=== PATIENT | female | born 1955 ===

== ENCOUNTER 2016-05-29 10:00 | Emergency (ER) | payer MEDICARE, MEDICAID ==
[2016-05-29 10:17] VITALS: BMI 35.9
[2016-05-29 10:32] VITALS: BP 151/76; RESP 18; TEMP 98.1; O2SAT 99
--- NOTE | 2016-05-29 11:28 | ED PDOC ---
HPI: General Adult Time Seen by Provider: 05/29/16 10:30 Chief Complaint (Nursing): Rib Injury Chief Complaint (Provider): Rib Injury History Per: Patient History/Exam Limitations: no limitations Onset/Duration Of Symptoms: Hrs Additional Complaint(s): 60 y/o female with a past medical history of 3 strokes, 2 minor heart attacks, aneurysm, and rheumatoid arthritis who presents to the emergency department with a complaint of hearing a crack to the right rib when she bent down in her car seat to leaf size picker her phone that fell on the floor on 05/26/2016. Patient states she did not visit the ER then because she thought the pain would get better but pain has worsened and is having difficulty breathing. Reports taking percocet without the relief of symptoms. Denies fall. Of note, patient states she had dental work up on 05/23/2016 which is why she had percocet And had prior surgery for the right rib after an injury about 4 years ago. PMD: Dr. Jg Henderson Past Medical History Reviewed: Historical Data, Nursing Documentation, Vital Signs Vital Signs: Last Vital Signs Temp 98.1 F 05/29/16 10:29 Pulse 58 L 05/29/16 12:50 Resp 18 05/29/16 10:29 BP 151/76 H 05/29/16 10:29 Pulse Ox 99 05/29/16 12:50 - Medical History PMH: Back Problems, CAD, Cardia Arrhythmia, CVA, HTN, Hypercholesterolemia, Osteoporosis, Rheumatoid Arthritis, Seizures, TIA Denies: Chronic Kidney Disease - Surgical History Surgical History: Back Surgery - Family History Family History: States: Unknown Family Hx - Social History Current smoker - smoking cessation education provided: No Alcohol: None Drugs: Denies - Home Medications Home Medications: Ambulatory Orders Medication Instructions Recorded Azithromycin [Zithromax] 250 mg PO DAILY #6 cap 03/03/14 Codeine Phos/Phenyleph HCl/P 5 ml PO Q6H #100 syr 03/03/14 [Phenergan Vc W/Codeine 120 ml] Acetaminophen with Codeine 1 tab PO Q6 PRN #15 tab 09/24/15 [Tylenol with Codeine No. 3 300 mg-30 mg] Colchicine 0.6 mg PO TID #15 capsule 09/24/15 Cyclobenzaprine [Cyclobenzaprine 10 mg PO TID PRN #15 tab 05/29/16 HCl] Lidocaine 5% [Lidoderm] 1 ea TD DAILY #10 patch 05/29/16 - Allergies Allergies/Adverse Reactions: Allergies Allergy/AdvReac Type Severity Reaction Status Date / Time ibuprofen Allergy RASH Verified 04/22/15 19:57 Review of Systems ROS Statement: Except As Marked, All Systems Reviewed And Found Negative Constitutional: Negative for: Other (Fall) Cardiovascular: Positive for: Other (Right rib pain) Respiratory: Positive for: Other (Difficulty breathing) Physical Exam - Reviewed Nursing Documentation Reviewed: Yes Vital Signs Reviewed: Yes - Physical Exam Appears: Positive for: Non-toxic, Uncomfortable Head Exam: Positive for: ATRAUMATIC, NORMOCEPHALIC Skin: Positive for: Normal Color, Warm, Dry Cardiovascular/Chest: Positive for: Regular Rate, Rhythm, Other (Tenderness and pain to the right lower rib subcoastal area). Negative for: Murmur Respiratory: Positive for: Normal Breath Sounds. Negative for: Accessory Muscle Use, Respiratory Distress Gastrointestinal/Abdominal: Positive for: Normal Exam, Soft. Negative for: Tenderness Neurologic/Psych: Positive for: Alert, Oriented - Laboratory Results Result Diagrams: 05/29/16 11:30 05/29/16 11:30 - ECG ECG: Positive for: Interpreted By Me, Viewed By Me ECG Rhythm: Positive for: Normal QRS, Normal ST Segment, Sinus Rhythm. Negative for: ST/T Changes Rate: 58 O2 Sat by Pulse Oximetry: 99 (RA) Pulse Ox Interpretation: Normal - Radiology X-Ray: Interpreted by Me, Viewed By Me X-Ray Interpretation: No Acute Disease - Progress Re-evaluation Time: 12:46 Condition: Re-examined, Improved Medical Decision Making Medical Decision Making: Time: 10:30 Initial impression: Rule out muscle strain, rib fracture, and atypical ACS Initial plan: --Electrocardiogram Stat --Basic Metabolic Panel --Troponin I Stat --EKG-ED (EDNURTX) Stat --CBC w/ differential --Ribs and Chest RT (RAD) --Morphine 4mg IVP --Agate Setter CONT --Revaluation EK bpm Sinus bradycardia. Nonspecific T Wave abnormality Scribe Attestation: Documented by Ronda Lobato, acting as a scribe for Brian Estrada MD. Provider Scribe Attestation: All medical record entries made by the Scribe were at my direction and personally dictated by me. I have reviewed the chart and agree that the record accurately reflects my personal performance of the history, physical exam, medical decision making, and the department course for this patient. I have also personally directed, reviewed, and agree with the discharge instructions and disposition. Disposition - Clinical Impression Clinical Impression: Rib contusion - Patient ED Disposition Is Patient to be Admitted: No Doctor Will See Patient In The: Office Counseled Patient/Family Regarding: Studies Performed, Diagnosis, Need For Followup - Disposition Referrals: Jg Henderson MD [Family Provider] - Disposition: Routine/Home Disposition Time: 12:46 Condition: GOOD Additional Instructions: Take medications for pain as instructed. Follow up with your PCP in 2-3 days. Prescriptions: Cyclobenzaprine [Cyclobenzaprine HCl] 10 mg PO TID PRN #15 tab PRN Reason: Muscle Spasm Lidocaine 5% [Lidoderm] 1 ea TD DAILY #10 patch Instructions: Rib Contusion (ED), Muscle Spasm (ED)
[2016-05-29 11:43] LABS: BASO # 0.1 K/uL (0.0-0.2); BASO % 1.4 % (0.0-2.0); EOS # 0.4 K/uL (0.0-0.7); EOS % 5.7 % (0.0-4.0); HEMATOCRIT 32.4 % (34.0-47.0); LYMPH # 2.6 K/uL (1.0-4.3); LYMPH % 35.8 % (20.0-40.0); MEAN CELL VOLUME 98.3 fl (81.0-99.0); MEAN CORPUSCULAR HEMOGLOBIN 33.7 pg (27.0-31.0); MEAN CORPUSCULAR HGB CONC 34.2 g/dL (33.0-37.0); MEAN PLATELET VOLUME 7.8 fl (7.2-11.7); MONO # 0.8 K/uL (0.0-0.8); MONO % 10.7 % (0.0-10.0); NEUT # 3.3 K/uL (1.8-7.0); NEUT % 46.4 % (50.0-75.0); NRBC % 0.1 % (0.0-0.0); RED CELL DISTRIBUTION WIDTH 14.4 % (11.5-14.5); WHITE BLOOD COUNT 7.2 K/uL (4.8-10.8)
[2016-05-29 11:49] LABS: BLOOD UREA NITROGEN 14 mg/dl (7-17); CALCIUM 9.1 mg/dL (8.4-10.2); CARBON DIOXIDE 24 mmol/L (22-30); CHLORIDE 108 mmol/L (98-107); GFR AFRICAN-AMERICAN > 60; GLUCOSE,RANDOM 91 mg/dL (65-105); SODIUM 144 mmol/l (132-148)
[2016-05-29 11:52] LABS: POTASSIUM 5.3 MMOL/L (3.6-5.0)
[2016-05-29] MEDS ORDERED: Lidocaine 5% Patch TD STA (12:22)
[2016-05-29 12:49] VITALS: PULSE 58
--- NOTE | 2016-05-29 12:56 | RAD ---
PROCEDURE: Chest and right ribs HISTORY: Rib pain, no history of trauma COMPARISON: 03/03/2014. TECHNIQUE: Frontal radiograph of the chest and multiple oblique radiographs of the right ribs were obtained. FINDINGS: RIGHT RIBS: No fracture or focal lesion visualized. LUNGS: Clear. PLEURA: No pneumothorax or pleural fluid. CARDIOVASCULAR: Cardiomegaly. No evidence of acute, significant cardiovascular disease. OTHER FINDINGS: None. IMPRESSION: Unremarkable radiographs of the chest and right ribs. No right rib fracture.
--- NOTE | 2016-05-29 21:01 | CARD ---
APPROVED REPORT EKG Measurement Heart [id number] <Conclusion> Sinus bradycardia Nonspecific T wave abnormality Abnormal ECG
== END 2016-05-29 13:53 | disposition home or self-care (01) ==
LOC: H.ER 10:00
DX: S20.219A Contusion of unspecified front wall of thorax, initial encounter (principal); X58.XXXA Exposure to other specified factors, initial encounter; I10 Essential (primary) hypertension; I25.10 Atherosclerotic heart disease of native coronary artery without angina pectoris; M81.0 Age-related osteoporosis without current pathological fracture; Z86.73 Personal history of transient ischemic attack (TIA), and cerebral infarction without residual deficits
CPT/HCPCS: 71101; 80048; 84484; 85025; 93005; 96374; 99282; J2270

== ENCOUNTER 2016-10-31 09:03 | Emergency (ER) | payer MEDICARE, MEDICAID ==
[2016-10-31 09:05] VITALS: BP 170/90; TEMP 98; O2SAT 98
[2016-10-31 09:06] VITALS: BMI 34.3
[2016-10-31 09:09] VITALS: PULSE 68; RESP 20
--- NOTE | 2016-10-31 09:46 | ED PDOC ---
HPI: Nose Bleed Time Seen by Provider: 10/31/16 09:10 Chief Complaint (Nursing): ENT Problem Chief Complaint (Provider): ENT Problem History Per: Patient History/Exam Limitations: no limitations Onset/Duration Of Symptoms: Days (few days prior to arrival) Current Symptoms Are (Timing): Still Present Additional Complaint(s): Vickie Sheriff is a 61 year old female presenting to the ED for an evaluation of intermittent bleeding from bilateral nostrils occurring for the past few days. The patient states she is on Plavix, but stopped taking the medication on her own due to the bleeding. She states she has had her nosebleeds for years and was evaluated by an ENT 4 months ago who said he "couldn't do anything for her". PMD: None Provided Past Medical History Reviewed: Historical Data, Nursing Documentation, Vital Signs Vital Signs: Last Vital Signs Temp 98 F 10/31/16 09:07 Pulse 68 10/31/16 09:07 Resp 20 10/31/16 09:07 BP 170/90 H 10/31/16 09:07 Pulse Ox 98 10/31/16 09:07 - Medical History PMH: Back Problems, CAD, Cardia Arrhythmia, CVA, HTN, Hypercholesterolemia, Osteoporosis, Rheumatoid Arthritis, Seizures, TIA Denies: Chronic Kidney Disease - Surgical History Surgical History: Denies: Back Surgery (denies) - Family History Family History: States: Unknown Family Hx - Social History Current smoker - smoking cessation education provided: No Ex-Smoker (has not smoked in the last 12 months): Yes Alcohol: None Drugs: Denies - Home Medications Home Medications: Ambulatory Orders Medication Instructions Recorded Azithromycin [Zithromax] 250 mg PO DAILY #6 cap 03/03/14 Codeine Phos/Phenyleph HCl/P 5 ml PO Q6H #100 syr 03/03/14 [Phenergan Vc W/Codeine 120 ml] Acetaminophen with Codeine 1 tab PO Q6 PRN #15 tab 09/24/15 [Tylenol with Codeine No. 3 300 mg-30 mg] Colchicine 0.6 mg PO TID #15 capsule 09/24/15 Cyclobenzaprine [Cyclobenzaprine 10 mg PO TID PRN #15 tab 05/29/16 HCl] Lidocaine 5% [Lidoderm] 1 ea TD DAILY #10 patch 05/29/16 - Allergies Allergies/Adverse Reactions: Allergies Allergy/AdvReac Type Severity Reaction Status Date / Time ibuprofen Allergy RASH Verified 10/31/16 09:07 Review of Systems ROS Statement: Except As Marked, All Systems Reviewed And Found Negative ENT: Positive for: Other (intermittent bleeding from bilateral nostrils) Physical Exam - Reviewed Nursing Documentation Reviewed: Yes Vital Signs Reviewed: Yes - Physical Exam Appears: Positive for: Non-toxic, No Acute Distress Head Exam: Positive for: ATRAUMATIC, NORMOCEPHALIC Skin: Positive for: Normal Color, Warm, Dry Eye Exam: Positive for: Normal appearance ENT: Positive for: Other (bilateral nostrils: no active bleeding, nose is clear with no blood) Neck: Positive for: Normal, Painless ROM Cardiovascular/Chest: Positive for: Regular Rate, Rhythm. Negative for: Murmur Respiratory: Positive for: Normal Breath Sounds. Negative for: Respiratory Distress Extremity: Positive for: Normal ROM Neurologic/Psych: Positive for: Alert, Oriented (x3) - ECG O2 Sat by Pulse Oximetry: 98 (RA) Pulse Ox Interpretation: Normal Medical Decision Making Medical Decision Making: Time: 09:10 Impression: Intermittent nosebleeds Plan: * Advised pt to restart Plavix and discussed with pt to not stop medications without consulting her doctors. Will refer pt to an ENT. Scribe Attestation: Documented by Aysha Marquez, acting as a scribe for Ching Johnson MD. Provider Scribe Attestation: All medical record entries made by the Scribe were at my direction and personally dictated by me. I have reviewed the chart and agree that the record accurately reflects my personal performance of the history, physical exam, medical decision making, and the department course for this patient. I have also personally directed, reviewed, and agree with the discharge instructions and disposition. Disposition - Clinical Impression Clinical Impression: Epistaxis - Disposition Referrals: Andrade Norman MD [Staff Provider] - Condition: STABLE Instructions: Nosebleed (ED) Forms: [employer] (Italian) Print Language: UPPER SORBIAN
== END 2016-10-31 09:31 | disposition home or self-care (01) ==
LOC: H.ER 09:03
DX: R04.0 Epistaxis (principal)

== ENCOUNTER 2017-02-01 09:56 | Emergency (ER) | payer MEDICARE, MEDICAID ==
[2017-02-01 09:56] VITALS: BMI 34.3
[2017-02-01 10:19] VITALS: RESP 19; TEMP 98
[2017-02-01] MEDS ORDERED: Acetaminophen-Codeine 300/30 mg Tab PO STA (10:35)
--- NOTE | 2017-02-01 11:10 | RAD ---
PROCEDURE: Left Ankle Radiographs. HISTORY: injury COMPARISON: None FINDINGS: BONES: Unremarkable. No fracture. JOINTS: Unremarkable. Ankle mortise maintained. Talar dome intact SOFT TISSUES: Normal. OTHER FINDINGS: Achilles enthesophyte. IMPRESSION: No demonstrated fracture or dislocation.
--- NOTE | 2017-02-01 11:16 | ED PDOC ---
Lower Extremity Pain/Injury Time Seen by Provider: 02/01/17 10:34 Chief Complaint (Nursing): Lower Extremity Problem/Injury Chief Complaint (Provider): ankle pain History Per: Patient History/Exam Limitations: no limitations Additional Complaint(s): 61yo F in Ed for eval of left ankle swelling/pain made worse with standing on ankle x 2days. states that he hs a hx of osteoarthritis, RA, CVA, [place]. denies calf pain numbness deformity to ankle. Past Medical History Reviewed: Historical Data, Nursing Documentation, Vital Signs Vital Signs: Last Vital Signs Temp 98 F 02/01/17 10:17 Pulse 61 02/01/17 10:17 Resp 19 02/01/17 10:17 BP 152/71 H 02/01/17 10:17 Pulse Ox 100 02/01/17 10:17 - Medical History PMH: Back Problems, CAD, Cardia Arrhythmia, CVA, HTN, Hypercholesterolemia, Osteoporosis, Rheumatoid Arthritis, Seizures, TIA Denies: Chronic Kidney Disease - Surgical History Surgical History: Denies: Back Surgery (denies) - Family History Family History: States: Unknown Family Hx - Home Medications Home Medications: Ambulatory Orders Medication Instructions Recorded Azithromycin [Zithromax] 250 mg PO DAILY #6 cap 03/03/14 Codeine Phos/Phenyleph HCl/P 5 ml PO Q6H #100 syr 03/03/14 [Phenergan Vc W/Codeine 120 ml] Acetaminophen with Codeine 1 tab PO Q6 PRN #15 tab 09/24/15 [Tylenol with Codeine No. 3 300 mg-30 mg] Colchicine 0.6 mg PO TID #15 capsule 09/24/15 Cyclobenzaprine [Cyclobenzaprine 10 mg PO TID PRN #15 tab 05/29/16 HCl] Lidocaine 5% [Lidoderm] 1 ea TD DAILY #10 patch 05/29/16 - Allergies Allergies/Adverse Reactions: Allergies Allergy/AdvReac Type Severity Reaction Status Date / Time aspirin Allergy RASH Verified 02/01/17 10:23 ibuprofen Allergy RASH Verified 02/01/17 10:23 NEOPRENE Allergy RASH Uncoded 02/01/17 10:23 Wells Criteria for PE - Wells Criteria for Pulmonary Embolism Clinical Signs and Symptoms of DVT: No P.E is #1 Diagnosis, or Equally Likely: No Heart Rate >100: No Immobilization at least 3 days;Surgery previous 4 weeks: No Previous, objectively diagnosed PE or DVT: No Hemoptysis: No Malignancy w/treatment within 6 months, or palliative: No Total Score: 0 Review of Systems ROS Statement: Except As Marked, All Systems Reviewed And Found Negative Constitutional: Negative for: Fever, Chills Gastrointestinal: Negative for: Nausea, Vomiting, Abdominal Pain Physical Exam - Reviewed Nursing Documentation Reviewed: Yes Vital Signs Reviewed: Yes - Physical Exam Appears: Positive for: Well, Non-toxic, No Acute Distress Skin: Positive for: Normal Color, Warm, DRY Neck: Positive for: Painless ROM Cardiovascular/Chest: Positive for: Regular Rate, Rhythm Respiratory: Positive for: CNT, Normal Breath Sounds Extremity: Positive for: Swelling (left ankle: mild swelling noted lateral tednerness noted. nuerovasc intact). Negative for: Calf Tenderness, Deformity Neurologic/Psych: Positive for: Alert, Oriented - ECG O2 Sat by Pulse Oximetry: 100 - Radiology X-Ray: Interpreted by Me, Read By Radiologist X-Ray Interpretation: No Acute Disease Medical Decision Making Medical Decision Making: Orders Category Date Time Status Acetaminophen/Codeine [Tylenol/Codeine 300 MG/30 MG] Med 02/01/17 10:35 Discontinued 1 tab PO ONCE STA ANKLE LEFT 3 VIEWS ROUTINE [RAD] Stat Radiology 02/01/17 10:26 Completed PT advisecd to antoni with podiatry for further care-given Aircast and advised to continue tramadol and tyenol for pain since she has an allergy to ASA/Motrin. Disposition - Clinical Impression Clinical Impression: Ankle injury - Patient ED Disposition Is Patient to be Admitted: No Counseled Patient/Family Regarding: Studies Performed, Diagnosis, Need For Followup - Disposition Referrals: Podiatry Clinic [Outside] Disposition: Routine/Home Disposition Time: 11:34 Condition: STABLE Instructions: Osteoarthritis (ED) Forms: [employer] ([employer])
[2017-02-01 11:47] VITALS: BP 124/75; PULSE 89; O2SAT 99
== END 2017-02-01 12:12 | disposition home or self-care (01) ==
LOC: H.ER 09:56
DX: M25.572 Pain in left ankle and joints of left foot (principal); M06.9 Rheumatoid arthritis, unspecified; M81.0 Age-related osteoporosis without current pathological fracture; Z86.73 Personal history of transient ischemic attack (TIA), and cerebral infarction without residual deficits

== ENCOUNTER 2017-02-28 06:01 | Day surgery (SDC) | payer MEDICARE, MEDICAID ==
[2017-02-21 09:10] VITALS: BMI 35.9
[2017-02-28 07:29] VITALS: RESP 18
[2017-02-28] MEDS ORDERED: Maxitrol Opht Susp ONE (08:56)
[2017-02-28] MEDS ORDERED: Lidocaine 1% 20 MG/2 ML PF AMP ONE (08:56)
[2017-02-28] MEDS ORDERED: Tetracaine 0.5% Ophth 2 ML BOTTLE ONE (08:56)
[2017-02-28] MEDS ORDERED: Acetylcholine 1% Opth System Pack IO ONE (08:56)
[2017-02-28] MEDS ORDERED: Chondroitin/Hyaluronate Opth Syringe KIT (0.55 ml-0.5 ml) IO ONE (08:57)
[2017-02-28] MEDS ORDERED: CA CL/K CL/NA CL 500 ML IR ONE (08:57)
[2017-02-28] MEDS ORDERED: EPINEPHrine 1 mg/ml (1:1000) Inj ONE (08:57)
[2017-02-28] MEDS ORDERED: Pilocarpine 1% Opht Soln ONE (08:57)
[2017-02-28] MEDS ORDERED: Povidone Iodine 5% Opht SOLUTION ONE (08:57)
[2017-02-28] MEDS ORDERED: BSS 15 ML 45 ML IR ONE (08:57)
[2017-02-28] MEDS ORDERED: Tropicamide 1% Opht 150 DROP/15 ML OD SCH (09:30)
[2017-02-28] MEDS ORDERED: Flurbiprofen 0.3% Opht SOLN OD SCH (09:30)
[2017-02-28] MEDS ORDERED: Phenylephrine 2.5% Opht Soln OD SCH (09:30)
[2017-02-28] MEDS ORDERED: Tropicamide 1% Opht 150 DROP/15 ML OD ONE (10:00)
[2017-02-28] MEDS ORDERED: Flurbiprofen 0.3% Opht SOLN OD ONE (10:00)
[2017-02-28] MEDS ORDERED: Phenylephrine 2.5% Opht Soln OD ONE (10:00)
[2017-02-28] MEDS ORDERED: Midazolam 2 MG/2 ML VIAL ONE (10:46)
[2017-02-28] MEDS ORDERED: Tetracaine 0.5% Ophth 2 ML BOTTLE OD ONE (10:50)
[2017-02-28] MEDS ORDERED: Lactated Ringer's 1,000 ML IV ONE (10:50)
[2017-02-28 12:57] VITALS: PULSE 62; TEMP 97.5; O2SAT 96
[2017-02-28 12:58] VITALS: BP 132/75
--- NOTE | 2017-03-06 12:41 | OP ---
PROCEDURE DATE : 02/28/17 SURGEON: JEAN NICHOLE MD ANESTHESIOLOGIST: JOSR MONET MD ANESTHESIA: LOCAL / IV SEDATION PREOPERATIVE DIAGNOSIS: CATARACT RIGH EYE. POSTOPERATIVE DIAGNOSIS: CATARACT RIGHT EYE. OPERATION: CLEAR CORNEAL PHACOEMULSIFICATION WITH LENS IMPLANT RIGHT EYE. PREPARATION AND PROCEDURE: After the patient was prepped and draped in the usual manner for sterile ophthalmic surgery, local IV sedation was administered ; eye seals were applied to the upper and lower lid margins and an adult wire lid speculum was placed within the lids. Under microsurgical control, a two- step clear corneal incision was made into the anterior chamber. The initial incision was perpendicular to the corneal plane. The second incision with the keratome was placed at a 45-degree angle to the first incision. One cc of one percent Xylocaine MPF was instilled into the anterior chamber to achieve proper intraocular anesthesia. At this time, the Viscoelastic was injected into the anterior chamber for protection of the endothelium and for maintenance of the chamber depth. A 360-degree continuous curvilinear capsulorrhexis was performed using a pre-bent 25-gauge needle. Hydrodissection and hydrodelineation were performed using a Chau cannula and balanced salt solution. Utilizing the tip of the Chau cannula, the nucleus was rotated freely within the capsular bag. A standard one-handed phacoemulsification was utilized at this time for sculpting and rotating of the nucleus. The nucleus was fragmented in its entirety and aspirated without any consequence. A standard I&A was carried out for the residual cortical material. No residual material was noted within the capsular bag. The posterior capsule was noted to be clear. Additional Viscoelastic was injected into the capsular bag in preparation for lens implantation. After this has been satisfactorily achieved the intraocular lens injected through the corneal incision into the capsular bag. The intraocular lens was manipulated until it was properly oriented and the Viscoelastic was evacuated from the capsular bag and anterior chamber. The anterior chamber was reformed with balanced salt solution. The corneal incision was irrigated with BSS. The intraocular pressure was found to be within normal limits. This terminated the procedure. The speculum and lid drapes were removed. TobraDex ophthalmic suspension and Pilocarpine 1% drops one drop was applied to the eye. POSTOPERATIVE CONDITION: The patient was brought to the Post anesthesia Recovery area with stable vital signs. DJEAN CENTENO MD
== END 2017-02-28 12:58 | disposition home or self-care (01) ==
LOC: H.OPSURG 06:01
PROVIDERS: ATTEND Ophthalmology
DX: H25.11 Age-related nuclear cataract, right eye (principal); I25.10 Atherosclerotic heart disease of native coronary artery without angina pectoris; J45.909 Unspecified asthma, uncomplicated; J44.9 Chronic obstructive pulmonary disease, unspecified; Z86.73 Personal history of transient ischemic attack (TIA), and cerebral infarction without residual deficits; E78.5 Hyperlipidemia, unspecified; I10 Essential (primary) hypertension; I25.2 Old myocardial infarction; G40.909 Epilepsy, unspecified, not intractable, without status epilepticus
CPT/HCPCS: 66984; J0171; J2250; J3010; J7120; V2632

== ENCOUNTER 2017-03-21 09:03 | Day surgery (SDC) | payer MEDICARE, MEDICAID ==
[2017-03-21] MEDS ORDERED: Pilocarpine 1% Opht Soln ONE (09:14)
[2017-03-21] MEDS ORDERED: Acetylcholine 1% Opth System Pack IO ONE ×2 (09:14→12:44)
[2017-03-21] MEDS ORDERED: Tetracaine 0.5% Ophth 2 ML BOTTLE ONE (09:14)
[2017-03-21] MEDS ORDERED: EPINEPHrine 1 mg/ml (1:1000) Inj ONE (09:14)
[2017-03-21] MEDS ORDERED: Maxitrol Opht Susp ONE (09:14)
[2017-03-21] MEDS ORDERED: Lidocaine 1% 20 MG/2 ML PF AMP ONE (09:14)
[2017-03-21] MEDS ORDERED: BSS 15 ML 45 ML IR ONE (09:15)
[2017-03-21] MEDS ORDERED: Chondroitin/Hyaluronate Opth Syringe KIT (0.55 ml-0.5 ml) IO ONE ×2 (09:15→12:43)
[2017-03-21] MEDS ORDERED: CA CL/K CL/NA CL 500 ML IR ONE (09:15)
[2017-03-21] MEDS ORDERED: Povidone Iodine 5% Opht SOLUTION ONE (09:15)
[2017-03-21 09:48] VITALS: BMI 35.3
[2017-03-21] MEDS ORDERED: Tropicamide 1% Opht 150 DROP/15 ML OS SCH (10:30)
[2017-03-21] MEDS ORDERED: Phenylephrine 2.5% Opht Soln OS ONE (10:30)
[2017-03-21] MEDS ORDERED: Flurbiprofen 0.3% Opht SOLN OS SCH (10:30)
[2017-03-21] MEDS ORDERED: Lactated Ringer's 1,000 ML IV ONE (10:40)
[2017-03-21] MEDS ORDERED: Flurbiprofen 0.3% Opht SOLN OS ONE (10:45)
[2017-03-21 11:00] VITALS: RESP 18
[2017-03-21] MEDS ORDERED: Midazolam 2 MG/2 ML VIAL ONE (12:24)
[2017-03-21] MEDS ORDERED: Maxitrol Opht Susp OS ONE (12:45)
[2017-03-21] MEDS ORDERED: Pilocarpine 1% Opht Soln OS ONE (12:46)
[2017-03-21 16:32] VITALS: TEMP 98.1
[2017-03-21 16:34] VITALS: O2SAT 96
[2017-03-21 16:35] VITALS: BP 140/80; PULSE 58
--- NOTE | 2017-03-23 07:04 | OP ---
PROCEDURE DATE : 03/21/17 SURGEON: JEAN NICHOLE MD ANESTHESIOLOGIST: JOSR MONET MD ANESTHESIA: IV SEDATION PREOPERATIVE DIAGNOSIS: CATARACT LEFT EYE. POSTOPERATIVE DIAGNOSIS: CATARACT LEFT EYE. OPERATION: CLEAR CORNEAL PHACOEMULSIFICATION WITH LENS IMPLANT LEFT EYE. PREPARATION AND PROCEDURE: After the patient was prepped and draped in the usual manner for sterile ophthalmic surgery, local IV sedation was administered ; eye seals were applied to the upper and lower lid margins and an adult wire lid speculum was placed within the lids. Under microsurgical control, a two- step clear corneal incision was made into the anterior chamber. The initial incision was perpendicular to the corneal plane. The second incision with the keratome was placed at a 45-degree angle to the first incision. One cc of one percent Xylocaine MPF was instilled into the anterior chamber to achieve proper intraocular anesthesia. At this time, the Viscoelastic was injected into the anterior chamber for protection of the endothelium and for maintenance of the chamber depth. A 360-degree continuous curvilinear capsulorrhexis was performed using a pre-bent 25-gauge needle. Hydrodissection and hydrodelineation were performed using a Chau cannula and balanced salt solution. Utilizing the tip of the Chau cannula, the nucleus was rotated freely within the capsular bag. A standard one-handed phacoemulsification was utilized at this time for sculpting and rotating of the nucleus. The nucleus was fragmented in its entirety and aspirated without any consequence. A standard I&A was carried out for the residual cortical material. No residual material was noted within the capsular bag. The posterior capsule was noted to be clear. Additional Viscoelastic was injected into the capsular bag in preparation for lens implantation. After this has been satisfactorily achieved the intraocular lens injected through the corneal incision into the capsular bag. The intraocular lens was manipulated until it was properly oriented and the Viscoelastic was evacuated from the capsular bag and anterior chamber. The anterior chamber was reformed with balanced salt solution. The corneal incision was irrigated with BSS. The intraocular pressure was found to be within normal limits. This terminated the procedure. The speculum and lid drapes were removed. TobraDex ophthalmic suspension and Pilocarpine 1% drops one drop was applied to the eye. POSTOPERATIVE CONDITION: The patient was brought to the Post anesthesia Recovery area with stable vital signs. DJEAN CENTENO MDD
== END 2017-03-21 14:20 | disposition home or self-care (01) ==
LOC: H.OPSURG 09:03
PROVIDERS: ATTEND Ophthalmology
DX: H25.812 Combined forms of age-related cataract, left eye (principal); J45.909 Unspecified asthma, uncomplicated; Z86.73 Personal history of transient ischemic attack (TIA), and cerebral infarction without residual deficits; I10 Essential (primary) hypertension; G40.909 Epilepsy, unspecified, not intractable, without status epilepticus
CPT/HCPCS: 66984; J0171; J2250; J3010; J7120; V2632

== ENCOUNTER 2017-07-01 10:01 | Emergency (ER) | payer MEDICARE, MEDICAID ==
[2017-07-01 10:02] VITALS: BMI 35.3
--- NOTE | 2017-07-01 10:54 | ED PDOC ---
HPI: Chest Pain Time Seen by Provider: 07/01/17 10:18 Chief Complaint (Nursing): Rib Injury Chief Complaint (Provider): Rib Injury History Per: Patient Onset/Duration Of Symptoms: Days (x5) Current Symptoms Are (Timing): Still Present Severity: None Associated Symptoms: Nausea, Dyspnea Additional Complaint(s): 61 year old female with a past medical history of asthma, COPD, CVA, brain aneurysm, rheumatoid arthritis, and osteoporosis, presents to the ED with complaints of right rib pain, onset 5 days ago. Patient reports she was stretching over her sofa reaching for her TV remote when she felt like something may have popped in her right rib. Patient reports of severe pain while breathing and nausea. Patient states she took tramadol and vitacin prescribed in the past for chronic headaches but has not felt any relief. Denies fevers, cough, and chest pain. PMD: Dr. Hitesh Henderson Past Medical History Reviewed: Historical Data, Nursing Documentation, Vital Signs Vital Signs: Last Vital Signs Temp 97 F L 07/01/17 10:11 Pulse 56 L 07/01/17 16:17 Resp 18 07/01/17 16:12 BP 143/67 07/01/17 16:12 Pulse Ox 100 07/01/17 16:17 - Medical History PMH: Back Problems, CAD, Cardia Arrhythmia, CVA, Depression, HTN, Hypercholesterolemia, Rheumatoid Arthritis, Seizures, TIA Denies: Chronic Kidney Disease - Surgical History Surgical History: Denies: Back Surgery (denies) Other surgeries: Aneurysm clipping surgery, abdominal tumor removal. - Family History Family History: States: Unknown Family Hx - Home Medications Home Medications: Ambulatory Orders Medication Instructions Recorded Carbamazepine [Carbamazepine] 200 mg PO TID 02/21/17 Clonidine HCl [Catapres] 0.2 mg PO BID 02/21/17 Clopidogrel [Plavix] 75 mg PO DAILY 02/21/17 Clotrimazole [Athletic Foot Cream] 30 mg BID 02/21/17 Enalapril Maleate [Vasotec] 20 mg PO BID 02/21/17 Ezetimibe [Zetia] 10 mg PO DAILY 02/21/17 Fluticasone/Vilanterol [Breo 1 % PO DAILY PRN 02/21/17 Ellipta 100-25 Mcg INH] Folic Acid [Folic Acid] 1 mg PO DAILY 02/21/17 Methotrexate [Methotrexate] 2.5 mg PO ONCE 02/21/17 Omeprazole [Omeprazole] 40 mg PO DAILY 02/21/17 Pregabalin [Lyrica] 75 mg PO DAILY 02/21/17 Tramadol HCl [Tramadol HCl ER] 375 mg PO QID 02/21/17 amLODIPine [Norvasc] 10 mg PO DAILY 02/21/17 levETIRAcetam [Keppra] 500 mg PO BID 02/21/17 Adalimumab [Humira Pen] 40 mg SQ .Q15 DAYS 02/28/17 Atenolol [Tenormin] 100 mg PO DAILY 02/28/17 Cyclobenzaprine [Cyclobenzaprine 10 mg PO TID #15 tab 07/01/17 HCl] - Allergies Allergies/Adverse Reactions: Allergies Allergy/AdvReac Type Severity Reaction Status Date / Time aspirin Allergy RASH Verified 02/01/17 10:23 ibuprofen Allergy RASH Verified 02/01/17 10:23 Penicillins Allergy RASH Verified 07/01/17 10:14 NEOPRENE Allergy RASH Uncoded 02/01/17 10:23 JOSE R Risk Score for UA/NSTEMI - JOS ER Risk Score Age > 64: NO 3 or more CAD Risk Factors: NO Known CAD (Stenosis greater than 50%): NO Aspirin use in past 7 days: NO Severe Angina: NO EKG ST changes greater than 0.5mm: NO Positive Cardiac Marker: NO JOSE R Score: 0 Risk %: 5% Wells Criteria for PE - Wells Criteria for Pulmonary Embolism Clinical Signs and Symptoms of DVT: No P.E is #1 Diagnosis, or Equally Likely: Yes Heart Rate >100: No Immobilization at least 3 days;Surgery previous 4 weeks: No Previous, objectively diagnosed PE or DVT: No Hemoptysis: No Malignancy w/treatment within 6 months, or palliative: No Total Score: 1 Review of Systems ROS Statement: Except As Marked, All Systems Reviewed And Found Negative Constitutional: Negative for: Fever Cardiovascular: Positive for: Other (dyspnea). Negative for: Chest Pain Respiratory: Negative for: Cough Gastrointestinal: Positive for: Nausea Musculoskeletal: Positive for: Other (right rib pain) Physical Exam - Reviewed Nursing Documentation Reviewed: Yes Vital Signs Reviewed: Yes - Physical Exam Appears: Positive for: Non-toxic, No Acute Distress Head Exam: Positive for: ATRAUMATIC, NORMOCEPHALIC Skin: Positive for: Normal Color, Warm, Dry Eye Exam: Positive for: Normal appearance, EOMI, PERRL ENT: Positive for: Normal ENT Inspection Neck: Positive for: Normal, Painless ROM, Supple Cardiovascular/Chest: Positive for: Bradycardia Respiratory: Positive for: Normal Breath Sounds. Negative for: Respiratory Distress Gastrointestinal/Abdominal: Positive for: Normal Exam, Tenderness (right lower rib) Back: Positive for: Normal Inspection. Negative for: L CVA Tenderness, R CVA Tenderness, Vertebral Tenderness Extremity: Positive for: Normal ROM. Negative for: Pedal Edema, Deformity Neurologic/Psych: Positive for: Alert, Oriented (x3). Negative for: Motor/ Sensory Deficits - Laboratory Results Result Diagrams: 07/01/17 10:59 07/01/17 10:59 - ECG ECG Rhythm: Positive for: Normal QRS, Sinus Bradycardia. Negative for: ST/T Changes Rate: 56 (Sinus Bradycardia) O2 Sat by Pulse Oximetry: 100 (RA) Pulse Ox Interpretation: Normal - Progress Re-evaluation Time: 16:00 Condition: Re-examined, Improved Medical Decision Making Medical Decision Making: Time: 1048 Impression: Right rib pain with trauma consider rib fracture, rule out pneumothorax and pneumonia, less likely ACS Plan: -- EKG -- BMP -- Troponin I -- CBC with differentials -- Shoe Associate -- Ribs Right & PA Chest RAD Time: 1147 RIBS RIGHT & PA CHEST RAD RESULTS FINDINGS: RIGHT RIBS: No fracture or focal lesion visualized. LUNGS: Clear. PLEURA: No pneumothorax or pleural fluid. CARDIOVASCULAR: Normal sized heart. No pulmonary vascular congestion. OTHER FINDINGS: None. IMPRESSION: Unremarkable radiographs of the chest and right ribs. No right rib fracture. Time: 1147 Plan: -- Chest CT w/o Contrast Time: [address] RESULTS LUNGS: Clear lungs. Visualized airway clear. MEDIASTINUM: Unremarkable thoracic aorta. No aneurysm. Normal heart size. Coronary arterial calcification. No pericardial effusion. Main pulmonary artery unremarkable. No vascular congestion. No lymphadenopathy. PLEURA: No pleural fluid. No pneumothorax. BONES: No fracture. No destructive lesion. UPPER ABDOMEN: Cholelithiasis. No evidence of cholecystitis. OTHER FINDINGS: None. IMPRESSION: Cholelithiasis without evidence of cholecystitis. No infiltrate or pleural effusion. No rib fracture or lytic/blastic osseous lesions. Time: 1424 -- D-Dimer is elevated ordered ANGIO CHEST CT Time: [address] RESULTS FINDINGS: PULMONARY ARTERIES: Unremarkable. No pulmonary embolism. AORTA: No acute findings. No thoracic aortic aneurysm. LUNGS: Unremarkable. No nodule, mass or pulmonary consolidation. PLEURAL SPACES: Unremarkable. No effusion or pneuomothorax. HEART: Unremarkable. No cardiomegaly. No significant pericardial effusion. LYMPH NODES: No lymphadenopathy. BONES, CHEST WALL: Unremarkable. No fracture or destructive lesion OTHER FINDINGS: Unremarkable. IMPRESSION: Unremarkable CT pulmonary angiogram. No pulmonary embolus. Scribe Attestation: Documented by Luís Tatum, acting as a scribe for Dr. Brian Estrada MD. Provider Scribe Attestation: All medical record entries made by the Scribe were at my direction and personally dictated by me. I have reviewed the chart and agree that the record accurately reflects my personal performance of the history, physical exam, medical decision making, and the department course for this patient. I have also personally directed, reviewed, and agree with the discharge instructions and disposition. Disposition - Clinical Impression Clinical Impression: Rib pain on right side - Patient ED Disposition Is Patient to be Admitted: No Doctor Will See Patient In The: Office Counseled Patient/Family Regarding: Studies Performed, Diagnosis, Need For Followup - Disposition Referrals: [facility] [Outside] Disposition: Routine/Home Disposition Time: 16:15 Condition: GOOD Additional Instructions: Take your medications as directed. Follow up with your PCP in 2-3 days. Prescriptions: Cyclobenzaprine [Cyclobenzaprine HCl] 10 mg PO TID #15 tab Instructions: Pleuritic Chest Pain (DC)
[2017-07-01 11:05] LABS: BASO # 0.1 K/uL (0.0-0.2); BASO % 0.7 % (0.0-2.0); EOS % 0.1 % (0.0-4.0); HEMOGLOBIN 11.7 g/dL (12.0-16.0); LYMPH # 2.2 K/uL (1.0-4.3); LYMPH % 22.6 % (20.0-40.0); MEAN CORPUSCULAR HEMOGLOBIN 31.8 pg (27.0-31.0); MEAN CORPUSCULAR HGB CONC 34.3 g/dL (33.0-37.0); MEAN PLATELET VOLUME 7.5 fl (7.2-11.7); MONO % 10.1 % (0.0-10.0); NEUT # 6.5 K/uL (1.8-7.0); NEUT % 66.5 % (50.0-75.0); RBC 3.67 Mil/uL (3.80-5.20); RED CELL DISTRIBUTION WIDTH 14.2 % (11.5-14.5); WHITE BLOOD COUNT 9.8 K/uL (4.8-10.8)
[2017-07-01 11:12] LABS: BLOOD UREA NITROGEN 12 mg/dl (7-17); CALCIUM 10.1 mg/dL (8.4-10.2); GFR AFRICAN-AMERICAN > 60; GFR NON-AFRICAN AMERICAN > 60
[2017-07-01 11:14] LABS: MEAN CELL VOLUME 92.7 fl (81.0-99.0)
--- NOTE | 2017-07-01 11:59 | RAD ---
PROCEDURE: Radiographs of the Chest and Right Ribs. HISTORY: right rib pain COMPARISON: None available. TECHNIQUE: Frontal radiograph of the chest and multiple oblique radiographs of the right ribs were obtained. FINDINGS: RIGHT RIBS: No fracture or focal lesion visualized. LUNGS: Clear. PLEURA: No pneumothorax or pleural fluid. CARDIOVASCULAR: Normal sized heart. No pulmonary vascular congestion. OTHER FINDINGS: None. IMPRESSION: Unremarkable radiographs of the chest and right ribs. No right rib fracture.
--- NOTE | 2017-07-01 12:52 | CT ---
PROCEDURE: CT Chest without contrast HISTORY: severe right rib pain COMPARISON: None. TECHNIQUE: Contiguous axial images were obtained through the chest without intravenous contrast enhancement. Sagittal and coronal reconstructions were performed. Radiation dose (DLP): 624.90 mGy-cm. This CT exam was performed using one or more of the following dose reduction techniques: Automated exposure control, adjustment of the mA and/or kV according to patient size, and/or use of iterative reconstruction technique. FINDINGS: LUNGS: Clear lungs. Visualized airway clear. MEDIASTINUM: Unremarkable thoracic aorta. No aneurysm. Normal heart size. Coronary arterial calcification. No pericardial effusion. Main pulmonary artery unremarkable. No vascular congestion. No lymphadenopathy. PLEURA: No pleural fluid. No pneumothorax. BONES: No fracture. No destructive lesion. UPPER ABDOMEN: Cholelithiasis. No evidence of cholecystitis. OTHER FINDINGS: None. IMPRESSION: Cholelithiasis without evidence of cholecystitis. No infiltrate or pleural effusion. No rib fracture or lytic/blastic osseous lesions.
[2017-07-01] MEDS ORDERED: Iodixanol 320 MG/ML 100 ML BOTTLE IV ONE (14:36)
--- NOTE | 2017-07-01 16:10 | CT ---
PROCEDURE: CT Chest with contrast (Pulmonary Angiogram) HISTORY: chest pain COMPARISON: None available. TECHNIQUE: Axial computed tomography images were obtained of the chest in the pulmonary arterial phase of enhancement. Coronal and sagittal reformatted images were created and reviewed. Intravenous contrast dose: 90 mL Visipaque 320 Radiation dose: Total exam DLP = 406.02 mGy-cm. This CT exam was performed using one or more of the following dose reduction techniques: Automated exposure control, adjustment of the mA and/or kV according to patient size, and/or use of iterative reconstruction technique. FINDINGS: PULMONARY ARTERIES: Unremarkable. No pulmonary embolism. AORTA: No acute findings. No thoracic aortic aneurysm. LUNGS: Unremarkable. No nodule, mass or pulmonary consolidation. PLEURAL SPACES: Unremarkable. No effusion or pneuomothorax. HEART: Unremarkable. No cardiomegaly. No significant pericardial effusion. LYMPH NODES: No lymphadenopathy. BONES, CHEST WALL: Unremarkable. No fracture or destructive lesion OTHER FINDINGS: Unremarkable. IMPRESSION: Unremarkable CT pulmonary angiogram. No pulmonary embolus.
[2017-07-01 16:12] VITALS: RESP 18
[2017-07-01 17:34] VITALS: BP 147/81; PULSE 66; TEMP 97.8; O2SAT 97
--- NOTE | 2017-07-03 06:40 | CARD ---
APPROVED REPORT EKG Measurement Heart [id number] <Conclusion> Sinus bradycardia Nonspecific T wave abnormality Abnormal ECG
== END 2017-07-01 17:20 | disposition home or self-care (01) ==
LOC: H.ER 10:01
DX: R07.81 Pleurodynia (principal); E78.00 Pure hypercholesterolemia, unspecified; F32.9 Major depressive disorder, single episode, unspecified; I10 Essential (primary) hypertension; I25.10 Atherosclerotic heart disease of native coronary artery without angina pectoris; M06.9 Rheumatoid arthritis, unspecified; Z86.73 Personal history of transient ischemic attack (TIA), and cerebral infarction without residual deficits; Z88.0 Allergy status to penicillin; K80.20 Calculus of gallbladder without cholecystitis without obstruction
CPT/HCPCS: 71101; 71250; 71275; 80048; 84484; 85025; 85378; 93005; 96374; 96375; 99284; J1885; J2270; Q9967

== ENCOUNTER 2018-03-10 14:27 | Emergency (ER) | payer MEDICARE, MEDICAID ==
[2018-03-10 14:28] VITALS: BMI 35.3
--- NOTE | 2018-03-10 15:46 | ED PDOC ---
Upper Extremity Pain/Injury Time Seen by Provider: 03/10/18 14:41 Chief Complaint (Nursing): Headache Chief Complaint (Provider): RUE pain History Per: Patient History/Exam Limitations: no limitations Additional Complaint(s): Pt reports RUE pain X 2 days, from hand to R lateral neck, worse with movement, numbness X 1 month. Denies new weakness (has residual weakness from old CVA), trauma. Also c/o L sided TIERNEY X 1 week, constant, was evaluated by Neurologist for past 3 days for same, given injection for pain, had outpatient CT head @ [facility] which was normal. Pt currently on Plavix. Past Medical History Reviewed: Nursing Documentation, Vital Signs Vital Signs: Last Vital Signs Temp 98.1 F 03/10/18 14:29 Pulse 62 03/10/18 15:18 Resp 18 03/10/18 15:18 BP 182/95 H 03/10/18 15:18 Pulse Ox 98 03/10/18 15:18 - Medical History PMH: Asthma, Back Problems, CAD, Cardia Arrhythmia, CVA, Depression, HTN, Hypercholesterolemia, Rheumatoid Arthritis, Seizures, TIA Denies: Chronic Kidney Disease - Surgical History Surgical History: Cholecystectomy, Denies: Back Surgery (denies) - Family History Family History: States: Unknown Family Hx - Living Arrangements Living Arrangements: With Family - Home Medications Home Medications: Ambulatory Orders Medication Instructions Recorded Carbamazepine 200 mg PO TID 02/21/17 Clonidine HCl [Catapres] 0.2 mg PO BID 02/21/17 Clopidogrel [Plavix] 75 mg PO DAILY 02/21/17 Clotrimazole [Athletic Foot Cream] 30 mg BID 02/21/17 Enalapril Maleate [Vasotec] 20 mg PO BID 02/21/17 Ezetimibe [Zetia] 10 mg PO DAILY 02/21/17 Fluticasone/Vilanterol [Breo 100 mg INH DAILY PRN 02/21/17 Ellipta 100-25 Mcg INH] Folic Acid 1 mg PO DAILY 02/21/17 Omeprazole 40 mg PO DAILY 02/21/17 Pregabalin [Lyrica] 75 mg PO BID 02/21/17 Tramadol HCl [Tramadol HCl ER] 375 mg PO QID 02/21/17 amLODIPine [Norvasc] 10 mg PO DAILY 02/21/17 levETIRAcetam [Keppra] 500 mg PO BID 02/21/17 Adalimumab [Humira Pen] 40 mg SQ .Q15 DAYS 02/28/17 Atenolol [Tenormin] 100 mg PO DAILY 02/28/17 Albuterol HFA [Ventolin HFA 90 1 puff IH QID 03/10/18 mcg/actuation (8 g)] Denosumab [Prolia] 60 mg SC Q6M 03/10/18 - Allergies Allergies/Adverse Reactions: Allergies Allergy/AdvReac Type Severity Reaction Status Date / Time aspirin Allergy RASH Verified 02/01/17 10:23 ibuprofen Allergy RASH Verified 02/01/17 10:23 Penicillins Allergy RASH Verified 07/01/17 10:14 NEOPRENE Allergy RASH Uncoded 02/01/17 10:23 Review of Systems Constitutional: Negative for: Fever, Chills Eyes: Negative for: Vision Change Cardiovascular: Negative for: Chest Pain Respiratory: Negative for: Cough, Shortness of Breath Gastrointestinal: Negative for: Nausea, Vomiting Genitourinary Female: Negative for: Dysuria, Hematuria Musculoskeletal: Positive for: Neck Pain, Arm Pain. Negative for: Back Pain Skin: Negative for: Rash, Lesions Neurological: Positive for: Numbness, Headache. Negative for: Weakness, Incoordination, Change in Speech, Confusion, Seizures, Altered Mental Status, Dizziness Physical Exam - Reviewed Nursing Documentation Reviewed: Yes Vital Signs Reviewed: Yes - Physical Exam Appears: Positive for: Uncomfortable Head Exam: Positive for: ATRAUMATIC, NORMAL INSPECTION Skin: Positive for: Normal Color, Warm, Dry Eye Exam: Positive for: Normal appearance, EOMI, PERRL Neck: Positive for: Supple, Pain On Movement Of Neck, See Diagram (R sided neck pain). Negative for: Decreased ROM Cardiovascular/Chest: Positive for: Regular Rate, Rhythm Respiratory: Positive for: Normal Breath Sounds. Negative for: Rales, Rhonchi, Wheezing Gastrointestinal/Abdominal: Positive for: Normal Exam Back: Positive for: Normal Inspection. Negative for: L CVA Tenderness, R CVA Tenderness Extremity: Positive for: Tenderness (Hand --> R shoulder), Capillary Refill (<2 sec). Negative for: Normal ROM, Pedal Edema, Deformity, Swelling Neurologic/Psych: Positive for: Alert, kindergarten teacher assistant II-XII, Oriented. Negative for: Motor/Sensory Deficits (No new), Aphasia, Facial Droop - Laboratory Results Result Diagrams: 03/10/18 15:25 03/10/18 16:12 - ECG O2 Sat by Pulse Oximetry: 98 Medical Decision Making Medical Decision Makin yo female with RUE pain and L sided TIERNEY. - labs - EKG - CXR - CT head - Morphine CT CERVICAL FINDINGS: VERTEBRAE: No fracture. Normal alignment. No destructive bony lesion. No acute compression fractures nor retropulsed fragments. Vertebral bodies exhibit relatively normal stature. There is straightening of the normal cervical lordosis which could be secondary to patient positioning gantry however underlying element of muscle spasm may contribute. Vertebral bodies and facets otherwise normally aligned DISCS/SPINAL CANAL/NEURAL FORAMINA: . Degenerative spondylosis seen at several levels. At the C6-C7 level, there is mild anterior disc space narrowing with prominent anterior osteophyte. There is mild broad-based though asymmetric disc bulge ridge complex larger on the right than left. Additionally,. Mild hypertrophic uncovertebral joints. Central bony canal appears adequate. Both exit foramina appear marginal of right slightly more narrowed than the left. There is a small central and bilateral disc bulge at the C5-C6 level. The overall central canal appears adequate. Exit foramina also adequate. At the C3-C4 level, there is mild anterior disc space narrowing. Small focal central and bilateral disc protrusion indents the ventral surface of the thecal sac and appears to reach the ventral surface of the cord. Central canal appears adequate. Exit foramina are adequate despite prominent facet joints. At the C3-C4 level, there is minimal anterior disc space narrowing. Small c entral and bilateral disc protrusion indents the ventral surface of the thecal sac reaching but not significantly deforming the ventral surface of cord. Facet joints are slightly overgrown left greater than right. Central canal and exit foramina appear adequate. PARASPINAL SOFT TISSUES: Unremarkable. OTHER FINDINGS: Vascular calcifications both carotid bifurcations and proximal internal carotid arteries.. IMPRESSION: No acute fractures. Mild multilevel degenerative spondylosis with small degenerative disc bulges/disc protrusion changes at several levels mentioned above. CT HEAD FINDINGS: HEMORRHAGE: No acute parenchymal, subarachnoid or extra-axial hemorrhage. BRAIN: Redemonstrated is a rounded metallic density in the right intracellular region consistent with embolization coils presumably occluding either a cavernous carotid or ophthalmic artery aneurysm. Clinical correlation with history recommended. Note that the metallic coils result in significant streak and beam hardening artifact diminishing fine detail at several at this and several levels above and below the epicenter of the coils. Suspect minor chronic periventricular white matter ischemic changes. Mild age-appropriate volume loss. VENTRICLES: No obstructive hydrocephalus.. CALVARIUM: Calvarium intact. PARANASAL SINUSES: Frontal sinuses are atretic. The remaining visualized paranasal sinuses are relatively well aerated and clear. MASTOID AIR CELLS: Unremarkable as visualized. No inflammatory changes. OTHER FINDINGS: Changes of bilateral cataract surgery. IMPRESSION: Redemonstrated is a rounded metallic density in the right intracellular region consistent with embolization coils presumably occluding either a cavernous carotid or ophthalmic artery aneurysm. Clinical correlation with history recommended. Note that the metallic coils result in significant streak and beam hardening artifact diminishing fine detail at several at this and several levels above and below the epicenter of the coils. Suspect minor chronic periventricular white matter ischemic changes. Mild age-appropriate volume loss. 17:30 Pain better, able to move LUE. 17:[address] Vera (covering for Dr. Auguste), states if no new symptoms can discharge home. 18:50 Pt reports pain returned, no relief with second Morphine dose. BP remains elevated after home medications given (Enalapril, Clonidine, Amlodipine). 19:[address] Cj Henderson, agrees with admission, Hospitalist. Disposition - Clinical Impression Clinical Impression: Intractable neuropathic pain of upper extremity, Uncontrolled hypertension - Patient ED Disposition Is Patient to be Admitted: Yes - Disposition Disposition: Routine/Home Disposition Time: 19:00 Condition: STABLE Instructions: High Blood Pressure (DC) Forms: [employer] (Bel[place]ian) - Pt Status Changed To: Hospital Disposition Of: Observation - POA Present On Arrival: None
[2018-03-10 15:51] LABS: BASO # 0.1 K/uL (0.0-0.2); BASO % 1.1 % (0.0-2.0); EOS # 0.4 K/uL (0.0-0.7); EOS % 4.7 % (0.0-4.0); HEMOGLOBIN 11.7 g/dL (12.0-16.0); LYMPH # 2.4 K/uL (1.0-4.3); LYMPH % 30.2 % (20.0-40.0); MEAN CORPUSCULAR HEMOGLOBIN 30.7 pg (27.0-31.0); MEAN CORPUSCULAR HGB CONC 34.1 g/dL (33.0-37.0); MEAN PLATELET VOLUME 9.1 fl (7.2-11.7); MONO # 0.6 K/uL (0.0-0.8); MONO % 7.3 % (0.0-10.0); NEUT # 4.4 K/uL (1.8-7.0); NEUT % 56.7 % (50.0-75.0); RBC 3.8 Mil/uL (3.80-5.20); RED CELL DISTRIBUTION WIDTH 15.2 % (11.5-14.5); WHITE BLOOD COUNT 7.8 K/uL (4.8-10.8)
[2018-03-10 16:19] LABS: PARTIAL THROMBOPLASTIN TIME 30.3 Seconds (25.6-37.1)
[2018-03-10 16:51] LABS: ALB/GLOB RATIO 1.1 (1.0-2.1); ALBUMIN 4.3 g/dL (3.5-5.0); ALT/SGPT 14 U/L (9-52); AST/SGOT 26 U/L (14-36); BLOOD UREA NITROGEN 16 mg/dl (7-17); CALCIUM 9.5 mg/dL (8.4-10.2); GFR NON-AFRICAN AMERICAN > 60
--- NOTE | 2018-03-10 16:52 | CT ---
Date of service: 03/10/2018 PROCEDURE: CT HEAD WITHOUT CONTRAST. HISTORY: L sided TIERNEY COMPARISON: Comparison made with CT scan brain dated 08/15/2011. TECHNIQUE: Axial computed tomography images were obtained through the head/brain without intravenous contrast. Radiation dose: Total exam DLP = 735.47 mGy-cm. This CT exam was performed using one or more of the following dose reduction techniques: Automated exposure control, adjustment of the mA and/or kV according to patient size, and/or use of iterative reconstruction technique. FINDINGS: HEMORRHAGE: No acute parenchymal, subarachnoid or extra-axial hemorrhage. BRAIN: Redemonstrated is a rounded metallic density in the right intracellular region consistent with embolization coils presumably occluding either a cavernous carotid or ophthalmic artery aneurysm. Clinical correlation with history recommended. Note that the metallic coils result in significant streak and beam hardening artifact diminishing fine detail at several at this and several levels above and below the epicenter of the coils. Suspect minor chronic periventricular white matter ischemic changes. Mild age-appropriate volume loss. VENTRICLES: No obstructive hydrocephalus.. CALVARIUM: Calvarium intact. PARANASAL SINUSES: Frontal sinuses are atretic. The remaining visualized paranasal sinuses are relatively well aerated and clear. MASTOID AIR CELLS: Unremarkable as visualized. No inflammatory changes. OTHER FINDINGS: Changes of bilateral cataract surgery. IMPRESSION: Redemonstrated is a rounded metallic density in the right intracellular region consistent with embolization coils presumably occluding either a cavernous carotid or ophthalmic artery aneurysm. Clinical correlation with history recommended. Note that the metallic coils result in significant streak and beam hardening artifact diminishing fine detail at several at this and several levels above and below the epicenter of the coils. Suspect minor chronic periventricular white matter ischemic changes. Mild age-appropriate volume loss.
--- NOTE | 2018-03-10 16:57 | CT ---
Date of service: 03/10/2018 PROCEDURE: CT Cervical Spine without contrast HISTORY: Right arm pain the. COMPARISON: No prior study available comparison TECHNIQUE: Axial computed tomography images were obtained of the cervical spine without the use of intravenous contrast. Coronal and sagittal reformatted images were created and reviewed. Radiation dose: Total exam DLP = 354.11 mGy-cm. This CT exam was performed using one or more of the following dose reduction techniques: Automated exposure control, adjustment of the mA and/or kV according to patient size, and/or use of iterative reconstruction technique. FINDINGS: VERTEBRAE: No fracture. Normal alignment. No destructive bony lesion. No acute compression fractures nor retropulsed fragments. Vertebral bodies exhibit relatively normal stature. There is straightening of the normal cervical lordosis which could be secondary to patient positioning gantry however underlying element of muscle spasm may contribute. Vertebral bodies and facets otherwise normally aligned DISCS/SPINAL CANAL/NEURAL FORAMINA: . Degenerative spondylosis seen at several levels. At the C6-C7 level, there is mild anterior disc space narrowing with prominent anterior osteophyte. There is mild broad-based though asymmetric disc bulge ridge complex larger on the right than left. Additionally,. Mild hypertrophic uncovertebral joints. Central bony canal appears adequate. Both exit foramina appear marginal of right slightly more narrowed than the left. There is a small central and bilateral disc bulge at the C5-C6 level. The overall central canal appears adequate. Exit foramina also adequate. At the C3-C4 level, there is mild anterior disc space narrowing. Small focal central and bilateral disc protrusion indents the ventral surface of the thecal sac and appears to reach the ventral surface of the cord. Central canal appears adequate. Exit foramina are adequate despite prominent facet joints. At the C3-C4 level, there is minimal anterior disc space narrowing. Small central and bilateral disc protrusion indents the ventral surface of the thecal sac reaching but not significantly deforming the ventral surface of cord. Facet joints are slightly overgrown left greater than right. Central canal and exit foramina appear adequate. PARASPINAL SOFT TISSUES: Unremarkable. OTHER FINDINGS: Vascular calcifications both carotid bifurcations and proximal internal carotid arteries.. IMPRESSION: No acute fractures. Mild multilevel degenerative spondylosis with small degenerative disc bulges/disc protrusion changes at several levels mentioned above.
--- NOTE | 2018-03-10 19:07 | CARD ---
APPROVED REPORT Date of service: 03/10/2018 EKG Measurement Heart [id number] <Conclusion> Sinus bradycardia Otherwise normal ECG
[2018-03-10 19:46] VITALS: BP 139/99; PULSE 72; RESP 18; TEMP 97.8
--- NOTE | 2018-03-10 20:05 | CP.PCM.HP ---
<Israel Balderas - Last Filed: 03/10/18 20:50> History of Present Illness - History of Present Illness History of Present Illness: 62 YO Female with PMH of Asthma, COPD, barin aneurysm, RA, CVA and osteoporosis who presents today to the ED with c/o Righ arm pain since yesterday, moderate to severe in quality, located mostly in the dorsum of hand and wrist with some radiation to the right lateral aspect of her neck and associated with stiffness of neck. Patient states that the pain appears to had been elicited by stress after an argument with her daughter yesterday, then improved and then started again today in the afternoon. Patient states that her pain has improved significantly after receiving pain medication in the ED. At time of evaluation patient c/o mild pain only, can move extremities to he rnormal baseline w/o difficulties and states that she would like to go to her home. Patient denies CP, SOB, acute weakness, N/V, or other acute medical complaint. Patient has residual weakness of RUE from old CVA. ROS: All systems reviewed and found unremarkable, except as per HPI. PMD: Dr Hitesh Henderson PMH: Asthma, COPD, CVA, HLD, RA, Seizures, Chronic back pain. FMH: Unknonwn to patient ALLERG: Aspirin, PCN, Neoprene SURG: SOCHx: Denies Tobacco/ ETOH use. ED Course: VS BP 139/99, RR 18, HR 72, OSAt 96% RA Meds adm: Amlodipine 10 mg PO x1, cloniodine 0.2 PO x1 for HTN, Enlapril 20 mg Po x 1 dose. Morphine 2 mg x2 doses Chemistry panel reviewed WNL EKG No T ST segement abnormalities. HEad CT no acute changes seen CErvical CT: Mild multilevel degenerative spondylosis with small degenerative disc bulges/disc protrusion changes at several levels mentioned above. no acute changes seen. Present on Admission - Present on Admission Any Indicators Present on Admission: No History of DVT/PE: No History of Uncontrolled Diabetes: No Urinary Catheter: No Decubitus Ulcer Present: No History Surgical Site Infection Following: None Past Patient History - Infectious Disease Hx of Infectious Diseases: None - Past Medical History & Family History Past Medical History?: Yes - Past Social History Smoking Status: Former Smoker - CARDIAC Hx Cardia Arrhythmia: Yes Hx Hypercholesterolemia: Yes Hx Hypertension: Yes - PULMONARY Hx Asthma: Yes - NEUROLOGICAL Hx Seizures: Yes Hx Transient Ischemic Attacks (TIA): Yes - HEENT Hx HEENT Problems: No Hx Cataracts: Yes - RENAL Hx Chronic Kidney Disease: No - ENDOCRINE/METABOLIC Hx Endocrine Disorders: No - HEMATOLOGICAL/ONCOLOGICAL Hx Blood Disorders: No Hx Blood Transfusions: Yes Hx Blood Transfusion Reaction: No - INTEGUMENTARY Hx Dermatological Problems: No - MUSCULOSKELETAL/RHEUMATOLOGICAL Hx Rheumatoid Arthritis: Yes - GASTROINTESTINAL Hx Gastrointestinal Disorders: Yes Hx Gastroesophageal Reflux: Yes (HEARTBURN) - GENITOURINARY/GYNECOLOGICAL Hx Genitourinary Disorders: No - PSYCHIATRIC Hx Depression: Yes - SURGICAL HISTORY Hx Cholecystectomy: Yes - ANESTHESIA Hx Anesthesia: Yes Hx Anesthesia Reactions: No Hx Malignant Hyperthermia: No Meds Allergies/Adverse Reactions: Allergies Allergy/AdvReac Type Severity Reaction Status Date / Time aspirin Allergy RASH Verified 02/01/17 10:23 ibuprofen Allergy RASH Verified 02/01/17 10:23 Penicillins Allergy RASH Verified 07/01/17 10:14 NEOPRENE Allergy RASH Uncoded 02/01/17 10:23 Physical Exam - Constitutional Appears: No Acute Distress - Head Exam Head Exam: ATRAUMATIC, NORMOCEPHALIC - Eye Exam Eye Exam: EOMI, PERRL - ENT Exam ENT Exam: Mucous Membranes Moist - Neck Exam Additional comments: mild tenderness to palpation of neck muscles - Respiratory Exam Respiratory Exam: Clear to Auscultation Bilateral. absent: Wheezes - Cardiovascular Exam Cardiovascular Exam: REGULAR RHYTHM, +S1, +S2 - GI/Abdominal Exam GI & Abdominal Exam: Normal Bowel Sounds, Soft. absent: Tenderness - Extremities Exam Extremities exam: Negative for: pedal edema Additional comments: UE: no deformities noted, strength 5/5, pulses 3+ b/l, no sensorial deficit noted, no tenderness noted to palpation. - Neurological Exam Neurological exam: Alert, CN II-XII Intact, Oriented x3 - Psychiatric Exam Psychiatric exam: Anxious, Normal Affect - Skin Skin Exam: Dry, Normal Color, Warm Results - Vital Signs Recent Vital Signs: Last Vital Signs Temp 97.8 F 03/10/18 19:45 Pulse 72 03/10/18 19:45 Resp 18 03/10/18 19:45 BP 139/99 H 03/10/18 19:45 Pulse Ox 96 03/10/18 19:45 - Labs Result Diagrams: 03/10/18 15:25 03/10/18 16:12 Labs: Laboratory Results - last 24 hr 03/10/18 03/10/18 03/10/18 15:25 15:25 16:12 WBC 7.8 RBC 3.80 Hgb 11.7 L Hct 34.2 MCV 90.0 D MCH 30.7 MCHC 34.1 RDW 15.2 H Plt Count 296 MPV 9.1 Neut % (Auto) 56.7 Lymph % (Auto) 30.2 [place] % (Auto) 7.3 Eos % (Auto) 4.7 H Baso % (Auto) 1.1 Neut # (Auto) 4.4 Lymph # (Auto) 2.4 [place] # (Auto) 0.6 Eos # (Auto) 0.4 Baso # (Auto) 0.1 PT 11.0 INR 1.0 APTT 30.3 Sodium 139 Potassium 3.6 Chloride 101 Carbon Dioxide 24 Anion Gap 18 BUN 16 Creatinine 0.6 L Est GFR ( Amer) > 60 Est GFR (Non-Af Amer) > 60 Random Glucose 107 H Calcium 9.5 Total Bilirubin 0.2 AST 26 ALT 14 Alkaline Phosphatase 52 Total Protein 8.2 Albumin 4.3 Globulin 3.9 Albumin/Globulin Ratio 1.1 Assessment & Plan - Assessment and Plan (Free Text) Assessment: 62 YO Female with PMH of Asthma, COPD, Brain aneurysm s/p coill stenting surgery, RA, CVA and osteoporosis, who presents today to ED with c/o moderate to severe RUE extremity pain elicited by stress after an argument, admitted for intractable RUE pain after trial tx with 2 doses of morphine in the ED. At time of bedside evaluation patient admits almost complete resolution of pain, and states she wants to go home and continue f/u with her PMD. No sensorial or motor deficit noted from patient functional baseline. RUE intractable pain, likely psychosomatic given patient h/o muscles spasm under stressful events vs muscular skeletal/arthritis pain. Patient was admitted for management of intractable pain, but sign out AMA stating she not longer have pain. Patient has f/u appoinment with PMD and plans to f/u. PMD Dr Henderson. <Jovan Fuentes D - Last Filed: 03/11/18 08:24> Results - Vital Signs Recent Vital Signs: Last Vital Signs Temp 97.8 F 03/10/18 19:45 Pulse 72 03/10/18 19:45 Resp 18 03/10/18 19:45 BP 139/99 H 03/10/18 19:45 Pulse Ox 96 03/10/18 19:45 - Labs Result Diagrams: 03/10/18 15:25 03/10/18 16:12 Labs: Laboratory Results - last 24 hr 03/10/18 03/10/18 03/10/18 15:25 15:25 16:12 WBC 7.8 RBC 3.80 Hgb 11.7 L Hct 34.2 MCV 90.0 D MCH 30.7 MCHC 34.1 RDW 15.2 H Plt Count 296 MPV 9.1 Neut % (Auto) 56.7 Lymph % (Auto) 30.2 [place] % (Auto) 7.3 Eos % (Auto) 4.7 H Baso % (Auto) 1.1 Neut # (Auto) 4.4 Lymph # (Auto) 2.4 [place] # (Auto) 0.6 Eos # (Auto) 0.4 Baso # (Auto) 0.1 PT 11.0 INR 1.0 APTT 30.3 Sodium 139 Potassium 3.6 Chloride 101 Carbon Dioxide 24 Anion Gap 18 BUN 16 Creatinine 0.6 L Est GFR ( Amer) > 60 Est GFR (Non-Af Amer) > 60 Random Glucose 107 H Calcium 9.5 Total Bilirubin 0.2 AST 26 ALT 14 Alkaline Phosphatase 52 Total Protein 8.2 Albumin 4.3 Globulin 3.9 Albumin/Globulin Ratio 1.1 Attending/Attestation - Attestation I have personally seen and examined this patient.: Yes I have fully participated in the care of the patient.: Yes I have reviewed all pertinent clinical information: Yes Notes (Text): 03/11/18 08:18 Patient seen and examined with resident. Case was discussed and agreed with assessment. Patient admitted by Dr Johnson, ER physician, as intractable right arm pain, although pain was getting better after receiving Morphine IV and had relief after IV Toradol. Dr Johnson refused to budge with the decision to admit but the patient feeling better decided to sign out AMA.
[2018-03-15 11:04] VITALS: O2SAT 98
== END 2018-03-10 19:54 | disposition left against medical advice (07) ==
LOC: H.ER 14:27
DX: I10 Essential (primary) hypertension (principal); M79.603 Pain in arm, unspecified; Z86.73 Personal history of transient ischemic attack (TIA), and cerebral infarction without residual deficits; R56.9 Unspecified convulsions; Z87.891 Personal history of nicotine dependence; Z88.0 Allergy status to penicillin; Z98.890 Other specified postprocedural states; G89.29 Other chronic pain; Z86.59 Personal history of other mental and behavioral disorders; J44.9 Chronic obstructive pulmonary disease, unspecified; M06.9 Rheumatoid arthritis, unspecified
CPT/HCPCS: 70450; 72125; 80053; 85025; 85610; 85730; 93005; 96374; 96375; 99285; J1885; J2270